=== PATIENT | male | born 1965 | race Caucasian/White ===

== ENCOUNTER 2016-07-30 23:46 | Emergency (ER) | payer MEDICARE, OTHER ==
[2016-07-31] MEDS ORDERED: PREDNISONE 10 MG TAB ONE (01:06)
[2016-07-31] MEDS ORDERED: KETOROLAC 60 MG/2 ML VIAL IM ONE (01:06)
== END 2016-07-31 01:57 | disposition home or self-care (01) ==
LOC: ER 07-31 00:02
DX: M25.561 Pain in right knee (principal); M79.671 Pain in right foot; M10.9 Gout, unspecified
CPT/HCPCS: 36415; 73562; 80048; 84550; 85025; 85652; J7512; 96372